=== PATIENT | female | born 1950 | race Caucasian/White ===

== ENCOUNTER 2016-11-28 09:21 | Emergency (ER) | payer OTHER ==
[2016-11-28 09:29] VITALS: RESP 16
[2016-11-28] MEDS ORDERED: NS 1,000 ML IV ONE (10:04)
[2016-11-28] MEDS ORDERED: ONDANSETRON 4 MG/2 ML VIAL IVP ONE (10:04)
--- NOTE | 2016-11-28 10:04 | UCPHY ---
H & P Time Seen by Provider: 11/28/16 09:32 Patient Type: New HPI/ROS: 66-year-old female presents complaining of several days of crampy left lower quadrant abdominal pain with occasional diarrhea as well as intermittent constipation. She denies vomiting she has however had some nausea. She denies fevers or chills. She states this feels similar to a prior flare of diverticulitis that she has had several years ago. Review of systems General no fever no chills no weakness HEENT no eye pain no eye discharge. No eye redness, no sore throat Respiratory no cough, no shortness of breath Cardiac no chest pain, no peripheral edema GI positive abdominal pain, positive diarrhea, positive constipation, positive nausea, no vomiting no flank pain, no hematuria, no dysuria Musculoskeletal no myalgias, no joint pain Heme no easy bruising, no easy bleeding Endo no polyuria, no polydipsia Skin no rashes, no pruritus Neuro no syncope, no dizziness, no headaches Psych is no suicidal ideation, no homicidal ideation Past Medical/Surgical History: Diverticulitis Hypothyroidism Social History: Rare alcohol, denies drug use Smoking Status: Never smoked Physical Exam: 66-year-old female alert and oriented no acute distress nontoxic appearance afebrile HEENT atraumatic normocephalic, extraocular muscles intact, anicteric Oropharynx negative for erythema negative exudate, tolerating her own secretions Neck supple no meningismus Lungs clear to auscultation bilaterally Heart regular rate and rhythm without murmur rub or gallop Abdomen nondistended normoactive bowel sounds soft positive left lower quadrant tenderness to palpation no guarding no rebound Back no CVA tenderness, no step-offs, no spinal tenderness Extremities no cyanosis clubbing or edema Neuro alert and oriented, no focal deficits Constitutional: Initial Vital Signs Temperature (C) 36.6 C 11/28/16 09:26 Heart Rate 70 11/28/16 09:26 Respiratory Rate 16 11/28/16 09:26 Blood Pressure 125/68 H 11/28/16 09:26 O2 Sat (%) 97 11/28/16 09:26 O2 Delivery Mode Room Air Allergies/Adverse Reactions: No Known Allergies Allergy (Verified 11/28/16 09:24) Home Medications: Medication Instructions Recorded Ibuprofen 200 mg 06/04/16 Levothyroxine 0.05 mg 06/04/16 Liothyronine Sodium 5 mg 06/04/16 Tylenol 06/04/16 Amoxicillin/Clavulanate Pot 875 mg PO BID #20 tab 11/28/16 [Augmentin 875 MG TAB (*)] Medical Decision Making - Diagnostics Imaging: CT abdomen positive for diverticulitis small amount of free fluid, no abscess collection, no free air no evidence of perforation ED Course/Re-evaluation: Patient seen and evaluated for left lower quadrant pain with intermittent diarrhea and constipation Patient given IV fluids, ondansetron 4 mg IV morphine 4 mg IV. Lab sent White blood cell count within normal limits CMP within normal limits CT abdomen positive for sigmoid diverticulitis The patient requesting not to be placed on Cipro Flagyl, upon review of diverticulitis in up-to-date Augmentin can be used as a single drug regimen. Impression Diverticulitis Plan Augmentin twice daily times 14 days Follow up with primary care physician - Data Points Laboratory Results: Laboratory Results 11/28/16 10:17 11/28/16 10:17 11/28/16 10:17 WBC 9.75 H 10^3/uL (3.80-9.50) RBC 4.58 10^6/uL (4.18-5.33) Hgb 14.4 g/dL (12.6-16.3) Hct 42.3 % (38.0-47.0) MCV 92.4 fL (81.5-99.8) MCH 31.4 pg (27.9-34.1) MCHC 34.0 g/dL (32.4-36.7) RDW 13.0 % (11.5-15.2) Plt Count 311 10^3/uL (150-400) MPV 9.4 fL (8.7-11.7) Neut % (Auto) 73.2 % (39.3-74.2) Lymph % (Auto) 15.6 % (15.0-45.0) [place] % (Auto) 7.9 % (4.5-13.0) Eos % (Auto) 2.3 % (0.6-7.6) Baso % (Auto) 0.7 % (0.3-1.7) Nucleat RBC Rel Count 0.0 % (0.0-0.2) Absolute Neuts (auto) 7.14 H 10^3/uL (1.70-6.50) Absolute Lymphs (auto) 1.52 10^3/uL (1.00-3.00) Absolute Monos (auto) 0.77 10^3/uL (0.30-0.80) Absolute Eos (auto) 0.22 10^3/uL (0.03-0.40) Absolute Basos (auto) 0.07 10^3/uL (0.02-0.10) Absolute Nucleated RBC 0.00 10^3/uL (0-0.01) Immature Gran % 0.3 % (0.0-1.1) Immature Gran # 0.03 10^3/uL (0.00-0.10) Sodium 138 mEq/L (134-144) Potassium 4.8 mEq/L (3.5-5.2) Chloride 101 mEq/L (97-110) Carbon Dioxide 28 mEq/l (22-31) Anion Gap 9 mEq/L (8-16) BUN 13 mg/dL (7-23) Creatinine 0.8 mg/dL (0.6-1.0) Estimated GFR > 60 Glucose 88 mg/dL (70-100) Calcium 9.5 mg/dL (8.5-10.4) Total Bilirubin 0.8 mg/dL (0.1-1.4) AST 24 IU/L (14-46) ALT 31 IU/L (9-52) Alkaline Phosphatase 60 IU/L (38-126) Total Protein 6.6 g/dL (6.3-8.2) Albumin 3.7 g/dL (3.5-5.0) Lipase 101.0 IU/L (23-300) Medications Given: Discontinued Medications Amoxicillin/Clavulanate Potassium (Augmentin 875mg) 875 mg PO EDNOW ONE PRN Reason: Protocol Stop: 11/28/16 11:57 Last Admin: 11/28/16 12:12 Dose: 875 mg Sodium Chloride (Ns) 1,000 mls @ 0 mls/hr IV ONCE ONE PRN Reason: Wide Open Stop: 11/28/16 10:05 Last Admin: 11/28/16 10:18 Dose: 1,000 mls Morphine Sulfate (Morphine) 4 mg IVP EDNOW ONE Stop: 11/28/16 10:06 Last Admin: 11/28/16 10:19 Dose: 4 mg Ondansetron HCl (Zofran) 4 mg IVP EDNOW ONE Stop: 11/28/16 10:05 Last Admin: 11/28/16 10:18 Dose: 4 mg Departure - Departure Disposition: Home, Routine, Self-Care Clinical Impression: Diverticulitis large intestine Condition: Good Instructions: Diverticulitis (ED), Diverticulitis Diet (ED) Referrals: IN STATE,. [Primary Care Provider] - As per Instructions Prescriptions: Amoxicillin/Clavulanate Pot [Augmentin 875 MG TAB (*)] 875 mg PO BID #20 tab - PQRS PQRS Measurement: na
[2016-11-28] MEDS ORDERED: IOPAMIDOL (ISOVUE-300) 100 ML BTL IV ONE (10:19)
[2016-11-28 10:24] LABS: % IMMATURE GRANULYOCYTES 0.3 % (0.0-1.1); ABSOLUTE IMMATURE GRANULOCYTES 0.03 10^3/uL (0.00-0.10); ADD DIFF? NO; ADD MORPH? NO; ADD SCAN? NO; ATYPICAL LYMPHOCYTE FLAG 0 (0-99); FRAGMENT RBC FLAG 0 (0-99); HEMATOCRIT 42.3 % (38.0-47.0); HEMOGLOBIN 14.4 g/dL (12.6-16.3); LEFT SHIFT FLG 0 (0-99); LIPEMIA HEMOLYSIS FLAG 90 (0-99); MEAN CELL HEMOGLOBIN 31.4 pg (27.9-34.1); MEAN CELL VOLUME 92.4 fL (81.5-99.8); MEAN PLATELET VOLUME 9.4 fL (8.7-11.7); PLATELET CLUMPS FLAG 10 (0-99); PLATELET COUNT 311 10^3/uL (150-400); RED BLOOD CELL COUNT 4.58 10^6/uL (4.18-5.33)
[2016-11-28 10:42] LABS: ALANINE AMINOTRANSFERASE 31 IU/L (9-52); ALBUMIN 3.7 g/dL (3.5-5.0); ALKALINE PHOSPHATASE 60 IU/L (38-126); ANION GAP 9 mEq/L (8-16); ASPARTATE AMINOTRANSFERASE 24 IU/L (14-46); BILIRUBIN,TOTAL 0.8 mg/dL (0.1-1.4); CALCIUM 9.5 mg/dL (8.5-10.4); CARBON DIOXIDE 28 mEq/l (22-31); CHLORIDE 101 mEq/L (97-110); CREATININE 0.8 mg/dL (0.6-1.0); GLOMERULAR FILTRATION RATE > 60; GLUCOSE 88 mg/dL (70-100); POTASSIUM 4.8 mEq/L (3.5-5.2); SODIUM 138 mEq/L (134-144); TOTAL PROTEIN 6.6 g/dL (6.3-8.2)
--- NOTE | 2016-11-28 11:51 | CT ---
CT Scan of the Abdomen and Pelvis (With Contrast) Indication: Left lower quadrant pain. Technique: No oral or rectal contrast. 90 mL of Isovue-300 were given intravenously by machine power injection. Multidetector helical CT imaging was performed from the diaphragm to the symphysis pubis . Dose reduction techniques were utilized. Comparison: None. Findings: A 10 cm segment of the sigmoid colon is inflamed evidenced by wall thickening and pericolon ic stranding along a segment of numerous diverticula. Trace free fluid resides in the low pelvis. No abscess or extraluminal gas. No obstruction or ileus. The appendix is normal. The liver, spleen, pancreas, gallbladder, adrenal glands, and kidneys are normal. No hydronephrosis o r ureteral calculi. The urinary bladder is mildly distended. The uterus is either atrophic or surgica lly absent. No adnexal mass. The lung bases are clear. The abdominal aorta is normal caliber with mild calcified plaque. No bone l esions. Moderate severe degenerative disk disease is present at L2-L3 and L4-L5. Impression: 1. Sigmoid diverticulitis. Small free fluid. No abscess or evidence of perforation. 2. Normal caliber atherosclerotic aorta. 3. Degenerative disk disease at L2-L3 and L4-L5. Comment: The results were called to Dr. Sosa shortly after study completion.
[2016-11-28] MEDS ORDERED: AMOXICILLIN/CLAVULANATE POT 875/125 MG TAB PO ONE (11:56)
[2016-11-28 12:54] VITALS: BP 109/67; PULSE 67; TEMP 97.2; O2SAT 93
== END 2016-11-28 12:38 | disposition home or self-care (01) ==
LOC: CED 09:21
DX: K57.92 Diverticulitis of intestine, part unspecified, without perforation or abscess without bleeding (principal)
CPT/HCPCS: 74177-PO; 80053-PO; 83690-PO; 85025-PO; 96361-PO; 96374-PO; 96375-PO; 99203-PO; G0463-PO; J2405; Q9967